=== PATIENT | male | born 1935 | race Caucasian/White ===

== ENCOUNTER 2017-09-20 12:58 | Outpatient (CLI) | payer MEDICARE, OTHER ==
--- NOTE | 2017-09-20 14:47 | CT ---
NONCONTRAST CT ABDOMEN AND PELVIS: Date: 09/20/17 HISTORY: Right flank pain for 3 weeks. Back pain. History of cholecystectomy. COMPARISON: 12/22/16. FINDINGS: No renal or ureteral calculi are seen bilaterally, and there is no hydronephrosis. Post cholecystectomy changes are present. Vascular calcifications are again seen in the abdominal aorta and iliac arteries. There is minimal bibasilar atelectasis versus scarring at the posterior aspect of each lung base. The liver, spleen, pancreas, bilateral adrenal glands, kidneys, and incompletely distended urinary bl adder demonstrate a grossly normal nonenhanced CT appearance. Urinary bladder wall thickening is like ly attributable to incomplete distention. The appendix is visualized and normal in caliber. Multiple phleboliths are seen in the pelvis. There are degenerative changes noted in the spine. There is colonic diverticulosis. Small to moderate amount of retained fecal material seen in the colo n. There has been no interval change compared to the prior exam. IMPRESSION: 1. Stable nonenhanced CT scan of the abdomen and pelvis. No acute findings are visualized. 2. No renal or ureteral calculi are present. 3. Colonic diverticulosis with a small to moderate amount of retained fecal material in the colon. POS: [facility]
== END 2017-09-20 12:59 | disposition home or self-care (01) ==
LOC: CT 12:58
PROVIDERS: ATTEND Internal Medicine Nephrology
DX: N18.3 Chronic kidney disease, stage 3 (moderate) (principal); M54.9 Dorsalgia, unspecified; K57.30 Diverticulosis of large intestine without perforation or abscess without bleeding; K59.00 Constipation, unspecified
CPT/HCPCS: 36415; 74176; 81003

== ENCOUNTER 2017-10-09 05:59 | Day surgery (SDC) | payer MEDICARE, OTHER ==
[2017-10-08 15:04] VITALS: BMI 30.5
--- NOTE | 2017-10-08 20:18 | HP ---
DATE OF ADMISSION: 10/09/2017 HISTORY OF PRESENT ILLNESS: Mr. Surendra Elise is a 81-year-old male with chronic GI symptoms , abdominal bloating, abdominal swelling, and constipation. The patient has history of colon polyp a nd polypectomy done 5 years ago. The patient comes for a colonoscopy because of history of colon chacorta yp and chronic GI symptoms. ALLERGIES: None. MEDICAL ILLNESSES: 1. Hypertension. 2. Hyperlipidemia. 3. Diabetes mellitus. 4. Chronic kidney disease. 5. Gout. 6. Chronic acid reflux. 7. Sleep apnea. SOCIAL HISTORY: The patient does not smoke, but drinks alcohol socially. PHYSICAL EXAMINATION: VITAL SIGNS: Pulse is 70, blood pressure 140/80. HEENT: Conjunctivae clear. CARDIOVASCULAR: First and second heart sounds normal. LUNGS: Clear to auscultation. ABDOMEN: Soft to palpate. No organomegaly. No tenderness. No masses. EXTREMITIES: Reveal no edema. ADMITTING DIAGNOSES: Colon polyp, chronic dyspepsia. PLAN: Colonoscopy.
[2017-10-09] MEDS ORDERED: Dextrose 50% Abboject 50 ML SYRINGE ONE (06:48)
--- NOTE | 2017-10-09 11:18 | OP ---
OPERATIVE PROCEDURE: Colonoscopy. PREOPERATIVE DIAGNOSIS: This is a 81-year-old male with history of colon polyp 5 years ago . The patient undergoing followup colonoscopy. POSTOPERATIVE DIAGNOSES: 1. Sigmoid diverticular disease with active diverticula over the proximal colon. 2. Hemorrhoids. PROCEDURE NOTE: The patient was placed on his left lateral position and was given sedation by Anesth esia Department. A rectal exam was done before the scope was advanced into the rectum. No lesion fe lt on rectal exam. A Pentax video colonoscope was introduced into the rectum and advanced all the wa y into the cecum. The prep was very good. The mucosa appears normal throughout the colon. The appe ndiceal orifice, ileocecal valve, and cecum, no pathology seen. Withdrawal of scope in the cecum, as cending colon, hepatic flexure, no pathology seen. The transverse colon, splenic flexure, no patholo gy seen. The descending colon showed occasional diverticula. The sigmoid colon showed some scattere d diverticular disease. Rectum showed hemorrhoids. DISCHARGE PLANNING: This is a 81-year-old male with history of colon polyp with polypectom y 5 years ago. The patient had abdominal pain and also some vague lower back pain. The patient had a colonoscopy. The colonoscopy basically showed left-sided diverticulitis. DISCHARGE RECOMMENDATIONS: 1. High-fiber diet. 2. Metamucil once a day. 3. Obtain a CAT scan of the abdomen with contrast in the near future.
[2017-10-09] MEDS ORDERED: PROPOFOL 200 MG/20 ML VIAL ONE (16:22)
[2017-10-09] MEDS ORDERED: Lidocaine 1% PF 5 ML VIAL ONE (16:22)
== END 2017-10-09 08:34 | disposition home or self-care (01) ==
LOC: SDC 05:59
PROVIDERS: ATTEND Internal Medicine Gastroenterology
PROC: 0DJD8ZZ Inspection of Lower Intestinal Tract, Via Natural or Artificial Opening Endoscopic (ICD-10-PCS; principal; 2017-10-09)
DX: K57.30 Diverticulosis of large intestine without perforation or abscess without bleeding (principal); K64.9 Unspecified hemorrhoids; I12.9 Hypertensive chronic kidney disease with stage 1 through stage 4 chronic kidney disease, or unspecified chronic kidney disease; E11.22 Type 2 diabetes mellitus with diabetic chronic kidney disease; N18.9 Chronic kidney disease, unspecified; E78.5 Hyperlipidemia, unspecified; M10.9 Gout, unspecified; K21.9 Gastro-esophageal reflux disease without esophagitis; G47.30 Sleep apnea, unspecified; Z88.5 Allergy status to narcotic agent; Z98.890 Other specified postprocedural states; Z86.010 Personal history of colon polyps
CPT/HCPCS: 36416; J2001; J2704

== ENCOUNTER 2017-10-16 10:42 | Outpatient (CLI) | payer MEDICARE, OTHER ==
[2017-10-16] MEDS ORDERED: ISOVUE-370 76%-LOCM 1 ML ONE (13:08)
== END 2017-10-16 10:43 | disposition home or self-care (01) ==
LOC: BICCT 10:42
PROVIDERS: ATTEND Internal Medicine Gastroenterology
DX: R10.9 Unspecified abdominal pain (principal); K57.30 Diverticulosis of large intestine without perforation or abscess without bleeding; Z90.49 Acquired absence of other specified parts of digestive tract
CPT/HCPCS: 74160

== ENCOUNTER 2017-10-18 00:22 | Emergency (ER) | payer MEDICARE, OTHER ==
[2017-10-18 00:43] LABS: #Basophils 0.1 thou/uL (0.0-0.2); #Eosinphils 0.1 thou/uL (0.0-0.7); #Lymphocytes 1.9 thou/uL (1.20-3.40); #Monocytes 0.7 thou/uL (0.11-0.59); #Neutrophils 6.9 thou/uL (1.40-6.50); %Basophils 0.7 % (0.0-1.0); %Eosinophils 1.1 % (0.0-10.0); %Monocytes 6.7 % (0.0-10.0); %Neutrophils 71.4 % (42.0-75.0); Hemoglobin 15.8 g/dL (14.0-18.0); Mean Corpuscular HGB CONC 33.3 g/dL (32.0-36.0); Mean Corpuscular Hemoglobin 29.2 pg (27.0-31.0); Mean Corpuscular Volume 87.8 fl (80.0-94.0); Platelet Count 201 thou/uL (130-400); RBC Distribution Width 15.3 % (11.5-14.5); Red Blood Cell (RBC) Count 5.41 mill/uL (4.70-6.10); White Blood Cell (WBC) Count 9.7 thou/uL (4.8-10.8)
[2017-10-18] MEDS ORDERED: Fentanyl 100 MCG/2 ML VIAL ONE (01:03)
[2017-10-18 01:41] LABS: ALT (SGPT) 22 U/L (8-55); AST (SGOT) 18 U/L (5-34); Albumin 4.3 g/dL (3.4-4.8); Alkaline Phosphatase 198 U/L (40-150); Anion Gap 11 mmol/L (10-20); BUN (Urea Nitrogen) 26 mg/dL (8.4-25.7); Bilirubin, Total 0.9 mg/dL (0.2-1.2); Calc. Creatinine Clearance 0 mL/min (70-130); Calcium 9.3 mg/dL (7.8-10.44); Carbon Dioxide 25 mmol/L (23-31); Chloride 103 mmol/L (98-107); Estimated GFR-MDRD 33; Globulin 3.2 g/dL (2.4-3.5); Glucose 260 mg/dL (83-110); Potassium 4.5 mmol/L (3.5-5.1); Protein, Total 7.5 g/dL (5.8-8.1); Sodium 134 mmol/L (136-145)
--- NOTE | 2017-10-18 08:14 | RAD ---
TWO VIEW LEFT FOREARM: Indication: Injury, trauma, pain. FINDINGS: Overlying artifacts limit detail. No discrete fracture or dislocation. There is punctate density of t he dorsal mid forearm projecting medially. Mild degenerative change is incidentally noted. IMPRESSION: 1. No acute fracture. 2. Punctate radiopaque foreign body at the dorsal, medial mid forearm. Correlate clinically. POS: [facility]
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
--- NOTE | 2017-10-18 08:18 | RAD ---
LEFT ANKLE THREE VIEWS: Indication: Post-traumatic pain. FINDINGS: There is soft tissue prominence. Mortise is intact. No discrete fracture. There is mild osteoarthriti s. IMPRESSION: 1. No acute osseous abnormality of left ankle. 2. Soft tissue prominence. Correlate clinically. POS: [facility]
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
[2017-10-18] MEDS ORDERED: ISOVUE-370 76%-LOCM 1 ML ONE (13:20)
== END 2017-10-18 02:48 | disposition home or self-care (01) ==
LOC: ERS 00:22
DX: S16.1XXA Strain of muscle, fascia and tendon at neck level, initial encounter (principal); S51.802A Unspecified open wound of left forearm, initial encounter; I10 Essential (primary) hypertension; K21.9 Gastro-esophageal reflux disease without esophagitis; E78.00 Pure hypercholesterolemia, unspecified; M10.9 Gout, unspecified; Z79.899 Other long term (current) drug therapy; Z79.84 Long term (current) use of oral hypoglycemic drugs; V50.9XXA Unspecified occupant of pick-up truck or van injured in collision with pedestrian or animal in traffic accident, initial encounter
CPT/HCPCS: 70450; 71260; 72125; 74177; 80053; 85025; 86850; 86900; 86901; 93005; 94760; 96374; 96376; J3010

== ENCOUNTER 2019-01-27 11:00 | Observation (INO) | payer MEDICARE, OTHER ==
[2019-01-27 11:18] LABS: #Basophils 0.1 thou/uL (0.0-0.2); #Eosinphils 0.2 thou/uL (0.0-0.7); #Lymphocytes 2.9 thou/uL (1.20-3.40); #Monocytes 0.5 thou/uL (0.11-0.59); %Basophils 0.5 % (0.0-1.0); %Eosinophils 1.9 % (0.0-10.0); %Lymphocytes 27.5 % (21.0-51.0); %Monocytes 4.2 % (0.0-10.0); %Neutrophils 65.9 % (42.0-75.0); Hemoglobin 15.3 g/dL (14.0-18.0); Mean Corpuscular HGB CONC 32.7 g/dL (32.0-36.0); Mean Corpuscular Hemoglobin 28.1 pg (27.0-31.0); Mean Platelet Volume 7.5 fL (7.4-10.4); Platelet Count 221 thou/uL (130-400); RBC Distribution Width 14.1 % (11.5-14.5); Red Blood Cell (RBC) Count 5.45 mill/uL (4.70-6.10); White Blood Cell (WBC) Count 10.6 thou/uL (4.8-10.8)
[2019-01-27 11:38] LABS: ALT (SGPT) 20 U/L (8-55); AST (SGOT) 15 U/L (5-34); Alkaline Phosphatase 128 U/L (40-150); Anion Gap 11 mmol/L (10-20); BUN (Urea Nitrogen) 57 mg/dL (8.4-25.7); Bilirubin, Total 0.7 mg/dL (0.2-1.2); CK (CPK) 50 U/L (30-200); Calc. Creatinine Clearance 0 mL/min (70-130); Calcium 8.5 mg/dL (7.8-10.44); Carbon Dioxide 23 mmol/L (23-31); Chloride 103 mmol/L (98-107); Estimated GFR-MDRD 18; Globulin 2.3 g/dL (2.4-3.5); Glucose 187 mg/dL (83-110); Potassium 4.3 mmol/L (3.5-5.1); Protein, Total 6.3 g/dL (5.8-8.1); Sodium 133 mmol/L (136-145)
[2019-01-27] MEDS ORDERED: Ondansetron ODT 4 MG TAB ONE (12:24)
--- NOTE | 2019-01-27 12:26 | RAD ---
EXAM: Portable chest PROVIDED CLINICAL HISTORY: Weakness COMPARISON: 04/12/2016 FINDINGS: Cardiac and mediastinal silhouette is within normal limits. No focal consolidation, pleural fluid or pneumothorax evident. Vascular calcification involves the aortic arch. IMPRESSION: No evidence for an acute cardiopulmonary process.
[2019-01-27 14:09] LABS: Bilirubin Negative (Negative); Blood, Urine Negative (Negative); Clarity Clear (Clear); Glucose, Urine (Dipstick) 30 mg/dL (Negative); Leukocyte Negative Leu/uL (Negative); Nitrite Negative (Negative); Protein, Urine (Dipstick) Negative (Neg-Trace); Urobilinogen Normal mg/dL (Less than 2)
--- NOTE | 2019-01-27 14:57 | ULT ---
VENOUS DOPPLER ULTRASOUND OF THE LEFT LOWER EXTREMITY: HISTORY: Left lower extremity edema and pain. TECHNIQUE: Ascencio-scale ultrasound with color-flow and spectral Doppler imaging of the deep venous system of the l eft lower extremity is performed. FINDINGS: There is good flow, compression, and augmentation noted in the left common femoral, femoral, deep fem oral, popliteal, posterior tibial, and greater saphenous veins. IMPRESSION: No evidence of deep venous thrombosis in the left lower extremity. POS: [facility]
[2019-01-27] MEDS ORDERED: Ondansetron PF 4 MG/2 ML Vial IVP PRN (15:22)
[2019-01-27] MEDS ORDERED: Ondansetron ODT 4 MG TAB PO PRN (15:22)
[2019-01-27] MEDS ORDERED: Acetaminophen 650 MG Suppository PR PRN (15:22)
[2019-01-27] MEDS ORDERED: Acetaminophen 325 MG TAB PO PRN (15:22)
[2019-01-27] MEDS ORDERED: HumaLOG 300 UNITS/3 ML VIAL SC PRN ×2 (15:30)
[2019-01-27] MEDS ORDERED: Dextrose 5% in Water 1,000 ML IV PRN (15:30)
[2019-01-27] MEDS ORDERED: Dextrose 50% Abboject 50 ML SYRINGE SLOW IVP PRN (15:30)
--- NOTE | 2019-01-27 16:12 | ULT ---
Exam: Bilateral renal ultrasound HISTORY: Severe acute kidney insufficiency/chronic kidney disease. Diminished GFR. COMPARISON: 11/19/2012 FINDINGS: Right kidney: Right renal cortical thinning. No hydronephrosis Right kidney measurements: 10.2 x 5.2 x 5.6 cm. Left kidney: Left renal cortical thinning. No hydronephrosis. Left kidney measurements 5.7 x 12.5 x 5.6 cm. Urinary bladder: Normal mucosa. 108 mL prevoid volume IMPRESSION: 1. No hydronephrosis. 2. Bilateral renal cortical thinning.
--- NOTE | 2019-01-27 19:11 | CON ---
DATE OF CONSULTATION: REASON FOR CONSULTATION: Elevated creatinine. HISTORY OF PRESENT ILLNESS: This is an 83-year-old gentleman, being seen in the CKD Clinic, presented to the hospital with a 1 to 2-day history of increasing weakness as well as substernal pain related to gastroesophageal reflux disease. The patient denies chest pain or orthopnea, but has dyspnea on minimal exertion. The patient denies any nausea or leg swelling. The patient's baseline creatinine was in the 1 to 2s and has increased to 3. PAST MEDICAL HISTORY: Significant for hyperlipidemia, gout, CKD, cholecystectomy, bilateral knee surgeries, shoulder replacement, cervical disk fusion. SOCIAL HISTORY: No alcohol or drug use. FAMILY HISTORY: Negative for ESRD. ALLERGIES: REVIEWED. MEDICATIONS: Home medication list reviewed. Hospital medication list reviewed. REVIEW OF SYSTEMS: A 15-point review of system was performed and negative except for positives noted above. GENERAL: HEAD: NECK: No swelling or lumps. NOSE: No epistaxis or discharge. EYES: No diplopia or pain. 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 NEUROPSYCHIATIC SYSTEMS: No suicidal ideation. No ideation. SKIN: Denies any rash or ulcer. CONSTITUTIONAL: No fever or chills. PHYSICAL EXAMINATION: General: The patient is awake and alert. VITAL SIGNS: Afebrile. Pulse 75, breathing 16, blood pressure 130/70. GENERAL APPEARANCE AND MENTAL STATUS: Fair. HEAD/NECK: Normocephalic. Atraumatic. EYES: EOMI. No deformity. EARS: Clear. No ulcers. NOSE: Intact. No lesions. MOUTH: Clear. No discharge. THROAT: Clear. No exudate. LUNGS: Clear. No crackles. CARDIAC: S1, S2. No rub. ABDOMEN: Benign. Bowel sounds positive. GENITALIA/RECTUM: Pina absent. BACK/EXTREMITIES: Edema 0+. NEUROLOGICAL: Alert and motor intact. SKIN: LYMPHATICS: LABORATORY DATA: Labs show hemoglobin 15.3. Creatinine 3.2. ASSESSMENT AND PLAN: Acute kidney injury with chronic kidney disease, stage 4, most likely due to acute tubular necrosis due to cardiorenal syndrome. No indication for dialysis. Hypertension, stable. Anemia, stable. Medication based on GFR, appropriate. We will follow the patient's renal function closely. Job ID: [id number]
--- NOTE | 2019-01-27 20:24 | HP ---
CHIEF COMPLAINT: Generalized weakness. HISTORY OF PRESENT ILLNESS: Mr. Elise is an 83-year-old gentleman with a known history of CKD, diabetes, and hypertension, who reports having generalized weakening, worsening over the last 2 weeks. He states that approximately 2 weeks ago he spoke to Dr. Alcocer about feeling generally unwell and was advised to go to the emergency department. He decided not to and since then has been away on vacation. His symptoms did not improve, but rather gradually worsened since then. He states two days ago, he developed loose stools. His last bowel movement was yesterday. States the stools were watery, though he suffers from chronic diarrhea, it was worse than usual. Denies noting any blood in the stool. Has not had any vomiting. Denies having any fevers. Reports having pain in the right inner thigh radiating down the medial aspect of his leg. Denies any injuries or strenuous activity. Has not had any pain in his hip. Denies any pain in his back. He suffers from chronic back discomfort, but does not cause any radicular pain down his leg. He has not noted any lower leg swelling or edema. In the emergency department, he underwent laboratory studies, which were notable for elevated renal function with a BUN of 57 and creatinine of 3.29. His GFR is 18. His GFR is usually in the mid 20s to 30s. Creatinine taken one month ago was 2.14. He had urinalysis done which was normal. LFTs unremarkable. Full blood count normal as well. He underwent a venous Doppler to rule out DVT and it was unremarkable. A chest x-ray was done as well which showed no acute cardiopulmonary process. The patient has been started on IV fluids. PAST MEDICAL HISTORY: 1. CKD. 2. Gout. 3. Hyperlipidemia. 4. Hypertension. 5. Diabetes mellitus. 6. GERD. 7. Chronic diverticulitis. PAST SURGICAL HISTORY: 1. Cholecystectomy. 2. Bilateral knee surgery. 3. Shoulder replacement. 4. Cervical disk fusion. SOCIAL HISTORY: The patient denies any tobacco use. Reports rare alcohol consumption. Denies any drug use. ALLERGIES: HYDROCODONE. CURRENT MEDICATIONS: 1. Allopurinol. 2. Cilostazol. 3. Colchicine. 4. Vitamin B12. 5. Glimepiride. 6. Insulin. 7. Losartan/hydrochlorothiazide. 8. Methylcellulose. 9. Omeprazole. 10. Lyrica. 11. Ropinirole. 12. Simvastatin. 13. Testosterone. PHYSICAL EXAMINATION: GENERAL: The patient appears well developed, well nourished, and is in no acute distress. VITAL SIGNS: HEENT: Normocephalic and atraumatic. Pupils are equal, round, and reactive to light. Sclerae without icterus. Oropharynx is clear. NECK: Supple. Full range of motion. LUNGS: Clear to auscultation bilaterally. CARDIAC: Regular rate and rhythm. ABDOMEN: Obese, soft, lower abdominal discomfort with palpation. The patient states this is long-standing due to diverticulitis. No rigidity or guarding. No renal angle tenderness. EXTREMITIES: No lower leg swelling or edema. He does have tenderness on the medial aspect of his thigh down to the level of his knee. Normal range of motion. Pain is not exacerbated with any movement in his legs. No increase in pain with plantar flexion or plantar extension or with straight leg raise passive or against resistance. No hip tenderness or groin tenderness. No redness or other skin changes. NEUROLOGIC: Alert and oriented x3. Sensation intact. Power 5/5 in all limbs. INVESTIGATIONS: As mentioned above in HPI. IMPRESSION AND PLAN: Mr. Elise is an 83-year-old gentleman who has been referred for management of the following. 1. Acute kidney injury/chronic kidney disease. The patient with a known history of chronic kidney disease, who is under the care of Dr. Alcocer. Advised to come in due to generalized weakness since two weeks ago. He is acutely dehydrated. We will receive IV hydration. We will obtain a renal ultrasound. Urinalysis has been done and unremarkable. Consultation has been placed with Dr. Alcocer. 2. Generalized weakness. The patient has felt unwell for the last 2 weeks with weakness gradually worsening and discomfort in the left leg. We will place consultation with PT/OT. 3. Hypertension. We will resume home medications and monitor blood pressure. 4. Diabetes mellitus. We will hold glimepiride. We will start insulin sliding scale and monitor glucose. 5. Deep venous thrombosis prophylaxis. Mechanical SCDs. We will hold anticoagulation given renal function. The patient is ambulatory. 6. Gastrointestinal prophylaxis. 7. Code status is full. His surrogate decision maker is his , Erica Elise. 8. The patient's case was discussed with Dr. Lai, who agrees with the plan of care as described above. Job ID: [id number]
[2019-01-27] MEDS ORDERED: Famotidine/PF 20 mg/2ml Vial SLOW IVP SCH (21:00)
[2019-01-27] MEDS ORDERED: Sodium Chloride 0.9% 1,000 ML IV SCH (23:30)
[2019-01-27] MEDS ORDERED: Melatonin 3 MG TAB PO SCH (23:30)
[2019-01-28 06:39] LABS: #Basophils 0.1 thou/uL (0.0-0.2); #Eosinphils 0.2 thou/uL (0.0-0.7); #Lymphocytes 3.4 thou/uL (1.20-3.40); #Monocytes 0.5 thou/uL (0.11-0.59); #Neutrophils 6.6 thou/uL (1.40-6.50); %Basophils 0.7 % (0.0-1.0); %Eosinophils 1.8 % (0.0-10.0); %Lymphocytes 31.2 % (21.0-51.0); %Monocytes 4.9 % (0.0-10.0); %Neutrophils 61.3 % (42.0-75.0); Hemoglobin 15.6 g/dL (14.0-18.0); Mean Corpuscular Hemoglobin 28.4 pg (27.0-31.0); Mean Corpuscular Volume 86.2 fL (78.0-98.0); Mean Platelet Volume 7.8 fL (7.4-10.4); Platelet Count 231 thou/uL (130-400); RBC Distribution Width 14.3 % (11.5-14.5); Red Blood Cell (RBC) Count 5.49 mill/uL (4.70-6.10); White Blood Cell (WBC) Count 10.8 thou/uL (4.8-10.8)
[2019-01-28 06:58] LABS: Anion Gap 11 mmol/L (10-20); BUN (Urea Nitrogen) 41 mg/dL (8.4-25.7); Calc. Creatinine Clearance 35 mL/min (70-130); Carbon Dioxide 21 mmol/L (23-31); Chloride 109 mmol/L (98-107); Estimated GFR-MDRD 29; Glucose 106 mg/dL (83-110); Potassium 4.3 mmol/L (3.5-5.1); Sodium 137 mmol/L (136-145)
[2019-01-28] MEDS ORDERED: Famotidine 20 MG TAB PO SCH (09:00)
[2019-01-28 12:00] VITALS: BMI 29.9
--- NOTE | 2019-01-28 16:40 | PRG ---
DATE OF SERVICE: 01/28/2019 SUBJECTIVE: An 83-year-old gentleman being seen for acute kidney injury. The patient denied nausea, vomiting, or chest pain. OBJECTIVE: CONSTITUTIONAL: The patient is awake and alert. VITAL SIGNS: Afebrile, pulse 72, breathing 16, and blood pressure 160/88. GENERAL APPEARANCE AND MENTAL STATUS: Fair. HEAD/NECK: Normocephalic. Atraumatic. EYES: EOMI. No deformity. EARS: Clear. No ulcers. NOSE: Intact. No lesions. MOUTH: Clear. No discharge. THROAT: Clear. No exudate. LUNGS: Clear. No crackles. CARDIAC: S1, S2. No rub. ABDOMEN: Benign. Bowel sounds positive. GENITALIA/RECTUM: Pina absent. BACK/EXTREMITIES: Edema 0+. NEUROLOGICAL: Alert and motor intact. SKIN: LYMPHATICS: LABORATORY DATA: Labs show creatinine is 2.2. ASSESSMENT AND PLAN: Acute kidney injury, improved. Hypertension, stable. Anemia, stable. For hypertension, I am going to stop IV fluids. Monitor the patient's renal function daily. Job ID: [id number]
--- NOTE | 2019-01-28 16:54 | PDOC.HOSPP ---
- Subjective Encounter Date: 01/28/19 Encounter Time: 11:00 Subjective: Patient reports he feels "a little" better after the fluids. C/o of profound weakness for the last 2 weeks. - Objective Vital Signs & Weight: Vital Signs (12 hours) Temp Pulse Resp BP BP Pulse Ox 01/28/19 16:44 98.4 F 71 20 179/71 H 99 01/28/19 12:00 97.3 F L 68 18 171/80 H 20 L 01/28/19 08:00 97.7 F 62 18 166/81 H 98 01/28/19 07:41 97.7 F 62 18 166/81 H 98 Weight Admit Weight 99.337 kg Weight 99.972 kg Result Diagrams: 01/28/19 05:43 01/28/19 05:43 Additional Labs: Accuchecks 01/28/19 01/28/19 01/28/19 16:41 11:50 04:06 POC Glucose 173 H 108 118 H 01/27/19 22:05 POC Glucose 240 H ROS - Review of Systems Constitutional: reports: weakness Neurological: reports: weakness - Exam Eye: PERRL ENT: moist mucosa Neck: supple, no JVD Heart: RRR Respiratory: CTAB Gastrointestinal: soft, non-tender Neurological: CN's grossly intact Musculoskeletal: normal tone Psychiatric: normal affect Hosp A/P (1) Chronic kidney disease (CKD) Code(s): N18.9 - CHRONIC KIDNEY DISEASE, UNSPECIFIED Status: Resolved (2) Diarrhea Code(s): R19.7 - DIARRHEA, UNSPECIFIED Status: Resolved (3) Acute worsening of stage 3 chronic kidney disease Code(s): N18.3 - CHRONIC KIDNEY DISEASE, STAGE 3 (MODERATE) Status: Chronic (4) Diabetes type 2, controlled Code(s): E11.9 - TYPE 2 DIABETES MELLITUS WITHOUT COMPLICATIONS Status: Chronic (5) Hypertension Code(s): I10 - ESSENTIAL (PRIMARY) HYPERTENSION Status: Chronic - Plan Dr. Alcocer is following, kidney function has improved since yesterday Will check an Echocardiogram, if EF WNL, will dc home PT/OT ordered, Will recheck labs in AM
[2019-01-28] MEDS ORDERED: Prevnar 13-Val Conj/PF 0.5 ML SYRINGE IM ONE (21:00)
[2019-01-29 06:56] VITALS: BP 174/89
[2019-01-29] MEDS ORDERED: Famotidine 20 MG TAB PO SCH (09:00)
[2019-01-29 09:06] VITALS: TEMP 98.3
[2019-01-29 09:26] LABS: Anion Gap 11 mmol/L (10-20); BUN (Urea Nitrogen) 31 mg/dL (8.4-25.7); Calc. Creatinine Clearance 40 mL/min (70-130); Calcium 8.6 mg/dL (7.8-10.44); Carbon Dioxide 23 mmol/L (23-31); Chloride 105 mmol/L (98-107); Estimated GFR-MDRD 33; Glucose 182 mg/dL (83-110); Potassium 4.3 mmol/L (3.5-5.1); Sodium 135 mmol/L (136-145)
--- NOTE | 2019-01-29 11:26 | PRG ---
DATE OF SERVICE: 01/29/2019 SUBJECTIVE: This is an 83-year-old gentleman, being seen for acute kidney injury. The patient denied nausea, vomiting, or chest pain. OBJECTIVE: CONSTITUTIONAL: The patient is awake and alert. VITAL SIGNS: Pulse 58, breathing 16, and blood pressure 177/83. GENERAL APPEARANCE AND MENTAL STATUS: Fair. HEAD/NECK: Normocephalic. Atraumatic. EYES: EOMI. No deformity. EARS: Clear. No ulcers. NOSE: Intact. No lesions. MOUTH: Clear. No discharge. THROAT: Clear. No exudate. LUNGS: Clear. No crackles. CARDIAC: S1, S2. No rub. ABDOMEN: Benign. Bowel sounds positive. GENITALIA/RECTUM: Pina absent. BACK/EXTREMITIES: Edema 0+. NEUROLOGICAL: Alert and motor intact. SKIN: LYMPHATICS: LABORATORY DATA: Reviewed. ASSESSMENT: 1. Stage 3 chronic kidney disease, stable. 2. Acute kidney injury, stable due to acute tubular necrosis. 3. Hypertension, stable. 4. Anemia, stable. 5. Medication based on GFR appropriate. 6. Congestive heart failure. The patient will follow up with Dr. Tovar. Job ID: [id number]
--- NOTE | 2019-02-01 14:59 | EKG ---
Test Reason : Blood Pressure : / mmHG Vent. Rate : 074 BPM Atrial Rate : 074 BPM P-R Int : 156 ms QRS Dur : 124 ms QT Int : 388 ms P-R-T Axes : 041 027 033 degrees QTc Int : 430 ms Normal sinus rhythm with sinus arrhythmia Non-specific intra-ventricular conduction delay Borderline ECG Confirmed by BRIELLE RIZO, FREYA ([id number]), multimedia editor JAJA VALDIVIA ([id number]) on 02/01/2019 2:58:43 PM Referred By: Confirmed By:FREYA HANNAH MD
== END 2019-01-29 11:53 | disposition home or self-care (01) ==
LOC: ERS 11:00 → ERHOLD 13:35 → T4-B 19:59 → T4-A 20:01
PROVIDERS: ADMIT Internal Medicine; ATTEND Internal Medicine
DX: I13.0 Hypertensive heart and chronic kidney disease with heart failure and stage 1 through stage 4 chronic kidney disease, or unspecified chronic kidney disease (principal); E11.22 Type 2 diabetes mellitus with diabetic chronic kidney disease; N18.4 Chronic kidney disease, stage 4 (severe); N17.0 Acute kidney failure with tubular necrosis; I50.9 Heart failure, unspecified; D63.1 Anemia in chronic kidney disease; M10.9 Gout, unspecified; E78.5 Hyperlipidemia, unspecified; K21.9 Gastro-esophageal reflux disease without esophagitis; Z98.1 Arthrodesis status; Z88.5 Allergy status to narcotic agent; Z79.4 Long term (current) use of insulin; Z79.899 Other long term (current) drug therapy
CPT/HCPCS: 71045; 76770; 80048 ×2; 80053; 81003; 82550; 82962 ×3; 83630; 83690; 83880; 84484; 85025 ×2; 87045; 87046; 87324; 87328; 87329; 87449 ×2; 87899 ×2; 90670; 93005; 93306; 93971; 96360; 96361 ×2; 97139 ×3; 99285; G0009; G0378 ×4; 36415; 36416; 90471; Q0162

== ENCOUNTER 2019-03-12 18:25 | Observation (INO) | payer MEDICARE, OTHER ==
[2019-03-12 19:01] VITALS: BMI 29.5
--- NOTE | 2019-03-12 20:14 | RAD ---
EXAM: Chest PA and lateral: HISTORY: Precardiac catheterization COMPARISON: 05/11/2014, 01/27/2019 FINDINGS: Heart: Normal cardiac silhouette Aorta: Atherosclerosis of the aortic knob Pulmonary vessels: Mildly prominent pulmonary vessels Costophrenic angles: Costophrenic angles are clear. Lungs: No consolidation or masses. Pneumothorax: No pneumothorax Osseous structures: No osseous abnormalities IMPRESSION: 1. Mild pulmonary vascular prominence. Correlate for volume overload 2. Atherosclerosis of the aortic knob
[2019-03-12] MEDS ORDERED: Ondansetron PF 4 MG/2 ML Vial SLOW IVP PRN (20:20)
[2019-03-12] MEDS ORDERED: Sodium Chloride 0.9% 1,000 ML IV SCH (20:20)
[2019-03-12] MEDS ORDERED: Acetaminophen 325 MG TAB PO PRN (20:20)
[2019-03-12] MEDS ORDERED: Mag-Al 1200 mg/1200 mg/30 ML UDCUP PO PRN (20:20)
[2019-03-12 20:48] LABS: #Basophils 0.1 thou/uL (0.0-0.2); #Eosinphils 0.2 thou/uL (0.0-0.7); #Lymphocytes 2.9 thou/uL (1.20-3.40); #Monocytes 0.6 thou/uL (0.11-0.59); #Neutrophils 7.1 thou/uL (1.40-6.50); %Basophils 0.5 % (0.0-1.0); %Eosinophils 1.7 % (0.0-10.0); %Lymphocytes 26.9 % (21.0-51.0); %Monocytes 5.4 % (0.0-10.0); %Neutrophils 65.5 % (42.0-75.0); Hemoglobin 14.7 g/dL (14.0-18.0); Mean Corpuscular HGB CONC 33.7 g/dL (32.0-36.0); Mean Platelet Volume 7.9 fL (7.4-10.4); Platelet Count 204 thou/uL (130-400); RBC Distribution Width 14.1 % (11.5-14.5); Red Blood Cell (RBC) Count 5.06 mill/uL (4.70-6.10); White Blood Cell (WBC) Count 10.9 thou/uL (4.8-10.8)
[2019-03-12 21:14] LABS: ALT (SGPT) 35 U/L (8-55); AST (SGOT) 16 U/L (5-34); Albumin 3.8 g/dL (3.4-4.8); Alkaline Phosphatase 150 U/L (40-110); Anion Gap 11 mmol/L (10-20); BUN (Urea Nitrogen) 41 mg/dL (8.4-25.7); Bilirubin, Total 0.5 mg/dL (0.2-1.2); Calc. Creatinine Clearance 29 mL/min (70-130); Calcium 8.3 mg/dL (7.8-10.44); Carbon Dioxide 25 mmol/L (23-31); Cardiac Risk 5.3 (Less than 4.5); Chloride 101 mmol/L (98-107); Cholesterol 116 mg/dl (< 200 Desired); Estimated GFR-MDRD 22; Globulin 2.6 g/dL (2.4-3.5); Glucose 300 mg/dL (83-110); HDL Cholesterol 22 mg/dL (>60 Neg Risk); LDL Cholesterol, Calculated 29 mg/dL; Potassium 3.7 mmol/L (3.5-5.1); Protein, Total 6.4 g/dL (5.8-8.1); Sodium 133 mmol/L (136-145); Triglycerides 325 mg/dL (Less than 150)
[2019-03-12] MEDS ORDERED: Colchicine 0.6 MG TAB PO PRN (21:15)
[2019-03-12] MEDS ORDERED: Insulin Glargine 25 UNITS in Pre-Filled Syringe 1 EACH SC SCH (21:15)
[2019-03-12] MEDS ORDERED: cloNIDine 0.1 MG TAB PO PRN (21:15)
[2019-03-12] MEDS ORDERED: rOPINIRole HCl 0.25 MG TAB PO SCH (22:45)
[2019-03-12] MEDS ORDERED: Allopurinol 300 MG TAB PO SCH (22:45)
[2019-03-12] MEDS: Melatonin 3 MG TAB PO SCH (23:14)
[2019-03-13 05:47] LABS: #Eosinphils 0.2 thou/uL (0.0-0.7); #Lymphocytes 3.6 thou/uL (1.20-3.40); #Monocytes 0.7 thou/uL (0.11-0.59); #Neutrophils 6.4 thou/uL (1.40-6.50); %Basophils 0.4 % (0.0-1.0); %Eosinophils 1.9 % (0.0-10.0); %Lymphocytes 32.7 % (21.0-51.0); %Monocytes 6.4 % (0.0-10.0); %Neutrophils 58.5 % (42.0-75.0); Mean Corpuscular HGB CONC 33.5 g/dL (32.0-36.0); Mean Corpuscular Volume 86.6 fL (78.0-98.0); Platelet Count 193 thou/uL (130-400); RBC Distribution Width 14.2 % (11.5-14.5); Red Blood Cell (RBC) Count 4.82 mill/uL (4.70-6.10); White Blood Cell (WBC) Count 10.9 thou/uL (4.8-10.8)
[2019-03-13 06:09] LABS: ALT (SGPT) 32 U/L (8-55); AST (SGOT) 16 U/L (5-34); Albumin 3.4 g/dL (3.4-4.8); Alkaline Phosphatase 121 U/L (40-110); Anion Gap 11 mmol/L (10-20); BUN (Urea Nitrogen) 38 mg/dL (8.4-25.7); Bilirubin, Total 0.6 mg/dL (0.2-1.2); Calc. Creatinine Clearance 35 mL/min (70-130); Calcium 8.3 mg/dL (7.8-10.44); Carbon Dioxide 28 mmol/L (23-31); Chloride 103 mmol/L (98-107); Cholesterol 104 mg/dl (< 200 Desired); Estimated GFR-MDRD 27; Globulin 2.3 g/dL (2.4-3.5); Glucose 116 mg/dL (83-110); HDL Cholesterol 21 mg/dL (>60 Neg Risk); LDL Cholesterol, Calculated 47 mg/dL; Potassium 3.6 mmol/L (3.5-5.1); Protein, Total 5.7 g/dL (5.8-8.1); Sodium 138 mmol/L (136-145); Triglycerides 179 mg/dL (Less than 150)
[2019-03-13] MEDS ORDERED: Heparin 10,000 UNITS/1 ML VIAL ONE (06:31)
[2019-03-13] MEDS ORDERED: Lidocaine 1% (PF) 30 ML VIAL ONE (06:35)
[2019-03-13] MEDS ORDERED: Midazolam HCl 2 mg/2 ml Vial ONE (07:11)
[2019-03-13] MEDS ORDERED: Fentanyl 100 MCG/2 ML VIAL ONE (07:11)
[2019-03-13] MEDS ORDERED: Protamine Sulfate 50 MG/5 ML VIAL ONE (07:32)
[2019-03-13] MEDS ORDERED: Nitroglycerin 0.4 MG TAB (25 Tab Bottle) SL PRN (07:58)
[2019-03-13] MEDS ORDERED: Sodium Chloride 0.9% 200 ML IV PRN (07:58)
[2019-03-13] MEDS ORDERED: Sodium Chloride 0.9% 1,000 ML IV SCH (08:00)
[2019-03-13] MEDS ORDERED: Mag-Al 1200 mg/1200 mg/30 ML UDCUP PO PRN (08:45)
[2019-03-13] MEDS ORDERED: Losartan 25 MG TAB PO SCH ×2 (09:00→13:45)
[2019-03-13] MEDS ORDERED: Hydrochlorothiazide 25 MG TAB PO SCH (09:00)
[2019-03-13] MEDS: Metoprolol Tartrate 50 MG TAB PO SCH ×2 (09:03→20:48)
[2019-03-13] MEDS: Aspirin 81 mg Enteric Coated Tablet PO SCH (09:03)
[2019-03-13 09:11] LABS: Hemoglobin A1c 8.5 % (4.0-6.0)
[2019-03-13] MEDS: Glimepiride 4 MG TAB PO SCH ×2 (13:19→17:21)
[2019-03-13] MEDS ORDERED: HumaLOG 300 UNITS/3 ML VIAL SC PRN (13:38)
[2019-03-13] MEDS ORDERED: Dextrose 5% in Water 1,000 ML IV PRN (13:38)
[2019-03-13] MEDS ORDERED: Dextrose 50% Abboject 50 ML SYRINGE SLOW IVP PRN (13:38)
--- NOTE | 2019-03-13 14:31 | CON ---
DATE OF CONSULTATION: REASON FOR CONSULTATION: CKD stage 4 and acute kidney injury. HISTORY OF PRESENT ILLNESS: This is a very pleasant 83-year-old gentleman with a history of CKD, who presented to the hospital after cardiac catheterization. His creatinine baseline was 1.9 to 2.2, which increased to 2.8 yesterday and is improved to 2.3 today. The patient denies a fever, chills, or chest pain. PAST MEDICAL HISTORY: Significant for CKD stage 4, hypertension, anemia, history of gout, hyperlipidemia, diabetes mellitus, GERD, history of cholecystectomy, bilateral knee surgery, shoulder replacement, and cervical disk fusion. SOCIAL HISTORY: No alcohol or drug use. FAMILY HISTORY: Negative for ESRD. ALLERGIES: REVIEWED. MEDICATIONS: Home medication list reviewed. REVIEW OF SYSTEMS: A 15-point review of system was performed ne GENERAL: HEAD: NECK: No swelling or lumps. NOSE: No epistaxis or discharge. EYES: No diplopia or pain. RESPIRATORY: CARDIOVASCULAR: GASTROINTESTINAL: /BOWLING [employer]K [employer]ERK: MUSCULOSKELETAL: No joint pain. NEUROPSYCHIATIC SYSTEMS: No suicidal ideation. No ideation. SKIN: Denies any rash or ulcer. CONSTITUTIONAL: No fever or chills. PHYSICAL EXAMINATION: CONSTITUTIONAL: The patient is awake and alert. VITAL SIGNS: Pulse 76, breathing 16, and blood pressure 151/70. GENERAL APPEARANCE AND MENTAL STATUS: Fair. HEAD/NECK: Normocephalic. Atraumatic. EYES: EOMI. No deformity. EARS: Clear. No ulcers. NOSE: Intact. No lesions. MOUTH: Clear. No discharge. THROAT: Clear. No exudate. LUNGS: Clear. No crackles. CARDIAC: S1, S2. No rub. ABDOMEN: Benign. Bowel sounds positive. GENITALIA/RECTUM: Pina absent. BACK/EXTREMITIES: Edema 0+. NEUROLOGICAL: Alert and motor intact. SKIN: LYMPHATICS: LABORATORY DATA: Labs show creatinine 2.3. ASSESSMENT AND PLAN: Acute kidney injury with chronic kidney disease stage 4, stable. Acute tubular necrosis, improved. Hypertension, stable. Anemia, stable. Medication based on GFR appropriate. No indication for dialysis. We will follow appropriately. Job ID: [id number]
[2019-03-13] MEDS: Sodium Chloride 0.9% 1,000 ML IV SCH ×2 (16:03→23:50)
[2019-03-13] MEDS ORDERED: Iopamidol 370 76% 100 ML VIAL ONE (17:43)
--- NOTE | 2019-03-13 20:32 | CON ---
DATE OF CONSULTATION: Consultation from Dr. Tovar for medical management of diabetes. HISTORY OF PRESENT ILLNESS: This patient is an 83-year-old male, who has a history of hypertension, hyperlipidemia, diabetes, and gout. He presented to Dr. Tovar's office with some chest pain, had an abnormal PET scan leading to heart catheterization today. The patient had single vessel disease, which appeared to be old and no other occlusive disease and no interventions were undertaken. The patient is doing well. Post procedure, he does have some elevated blood pressure, but did not get his usual home medications this morning. He did receive a beta-rosamaria of metoprolol 50 mg this morning. He also did receive his dose of insulin last evening, but was n.p.o. this morning. He did not get his Amaryl this morning, but he did have some borderline hypoglycemia. He has subsequently eaten and feels confident that he is back to baseline. PAST MEDICAL HISTORY: Hypertension, hyperlipidemia, hypothyroidism, chronic kidney disease stage 3, gout. PAST SURGICAL HISTORY: Back surgery x2, shoulder surgery, cholecystectomy, bilateral knee arthroscopy. FAMILY HISTORY: Stroke in his mother, cancer in his father. SOCIAL HISTORY: Former smoker. ALLERGIES: HYDROCODONE. HOME MEDICATIONS: 1. Colchicine 0.6 mg p.o. daily. 2. Melatonin 10 mg at bedtime. 3. Cilostazol 50 mg at bedtime. 4. Allopurinol 300 mg q.p.m. 5. Amaryl 4 mg b.i.d. 6. Insulin glargine 25 units subcu at bedtime. 7. Ropinirole 0.75 mg at bedtime. 8. Simvastatin 20 mg q.p.m. 9. Omeprazole 40 mg q.a.m. 10. Losartan HCTZ 50/12.5 one half tablet p.o. daily. PHYSICAL EXAMINATION: VITAL SIGNS: Temperature 97.5, pulse 61, respirations 16, O2 saturation 97% on room air, BP 174/79. GENERAL APPEARANCE: Age-appropriate male, in no distress. He is awake and alert. HEART: Regular rate and rhythm without murmurs, gallops, or rubs. LUNGS: Clear to auscultation bilaterally with good chest wall expansion and air exchange. ABDOMEN: Soft, nontender, and nondistended with positive bowel sounds. EXTREMITIES: No cyanosis, clubbing, or edema. LABORATORY DATA: Creatinine this morning was 2.33 with a GFR of 27. Glucose initially 116, subsequently was at 64, then 84. White count was 10.9, hemoglobin 14.0. IMPRESSION AND PLAN: 1. Single-vessel coronary artery disease without indication for intervention. 2. Hypertension. The patient is reporting that he is actually running high in his blood pressure as an outpatient. We will go ahead and give him a dose of 25 mg of losartan he was taking at home. Even though, he did receive the beta rosamaria this morning, his blood pressure continues to run high. I resume his usual home medications in the morning. 3. Diabetes mellitus. We will order Accu-Cheks and minimum sliding scale. We will be able to continue with his usual home medications otherwise. 4. Chronic kidney disease stage 3. The patient is receiving hydration status post heart catheterization. We will recheck his labs in the morning. Job ID: [id number] MTDD
[2019-03-13] MEDS: Melatonin 3 MG TAB PO SCH (20:49)
[2019-03-13] MEDS ORDERED: Allopurinol 300 MG TAB PO SCH (21:00)
[2019-03-13] MEDS ORDERED: Cilostazol 100 MG TAB PO SCH (21:00)
[2019-03-13] MEDS ORDERED: Simvastatin 40 MG TAB PO SCH (21:00)
[2019-03-13] MEDS ORDERED: Insulin Glargine 25 UNITS in Pre-Filled Syringe 1 EACH SC SCH (21:00)
[2019-03-13] MEDS ORDERED: rOPINIRole HCl 0.25 MG TAB PO SCH (21:00)
[2019-03-14 04:55] LABS: Anion Gap 7 mmol/L (10-20); BUN (Urea Nitrogen) 20 mg/dL (8.4-25.7); Calc. Creatinine Clearance 44 mL/min (70-130); Calcium 8.3 mg/dL (7.8-10.44); Carbon Dioxide 29 mmol/L (23-31); Chloride 107 mmol/L (98-107); Estimated GFR-MDRD 35; Glucose 96 mg/dL (83-110); Potassium 3.7 mmol/L (3.5-5.1); Sodium 139 mmol/L (136-145)
[2019-03-14 07:53] VITALS: BP 157/73; TEMP 97.7
[2019-03-14] MEDS: Glimepiride 4 MG TAB PO SCH (08:41)
[2019-03-14] MEDS: Aspirin 81 mg Enteric Coated Tablet PO SCH (08:42)
[2019-03-14] MEDS: Metoprolol Tartrate 50 MG TAB PO SCH (08:42)
[2019-03-14] MEDS ORDERED: hydrALAZINE 25 MG TAB PO SCH (09:00)
--- NOTE | 2019-03-14 13:55 | PRG ---
DATE OF SERVICE: 03/14/2019 SUBJECTIVE: An 83-year-old gentleman, being seen for acute kidney injury. The patient denied any nausea, vomiting, or chest pain. OBJECTIVE: CONSTITUTIONAL: The patient is awake and alert. VITAL SIGNS: Afebrile. Pulse 65, breathing 16, blood pressure 137/73. GENERAL APPEARANCE AND MENTAL STATUS: Fair. HEAD/NECK: Normocephalic. Atraumatic. EYES: EOMI. No deformity. EARS: Clear. No ulcers. NOSE: Intact. No lesions. MOUTH: Clear. No discharge. THROAT: Clear. No exudate. LUNGS: Clear. No crackles. CARDIAC: S1, S2. No rub. ABDOMEN: Benign. Bowel sounds positive. GENITALIA/RECTUM: Pina absent. BACK/EXTREMITIES: Edema 0+. NEUROLOGICAL: Alert and motor intact. SKIN: LYMPHATICS: LABORATORY DATA: Showed hemoglobin 4.8. ASSESSMENT AND PLAN: 1. Stage 3 chronic kidney disease, stable. 2. Hypertension, stable. 3. Acute kidney injury due to acute tubular necrosis, improved. 4. Anemia, stable. The patient will follow up to see me in 1 month. Job ID: [id number]
== END 2019-03-14 10:28 | disposition home or self-care (01) ==
LOC: CCL 18:25 → 2SW 18:41 → EDSTATUS 03-13 12:28 → 2SW 03-13 12:59 → CCL 03-13 13:01 → EDSTATUS 03-13 16:39
PROVIDERS: ADMIT Internal Medicine Cardiovascular Disease; ATTEND Internal Medicine Cardiovascular Disease
PROC: 4A023N7 Measurement of Cardiac Sampling and Pressure, Left Heart, Percutaneous Approach (ICD-10-PCS; principal; 2019-03-12)
PROC: B2101ZZ Fluoroscopy of Single Coronary Artery using Low Osmolar Contrast (ICD-10-PCS; 2019-03-12)
DX: I25.10 Atherosclerotic heart disease of native coronary artery without angina pectoris (principal); I12.9 Hypertensive chronic kidney disease with stage 1 through stage 4 chronic kidney disease, or unspecified chronic kidney disease; E11.22 Type 2 diabetes mellitus with diabetic chronic kidney disease; N18.4 Chronic kidney disease, stage 4 (severe); N17.0 Acute kidney failure with tubular necrosis; E03.9 Hypothyroidism, unspecified; I34.0 Nonrheumatic mitral (valve) insufficiency; E78.2 Mixed hyperlipidemia; Z79.84 Long term (current) use of oral hypoglycemic drugs; Z79.899 Other long term (current) drug therapy; Z87.891 Personal history of nicotine dependence; Z88.5 Allergy status to narcotic agent
CPT/HCPCS: 71046; 80048; 80053 ×2; 80061 ×2; 82962 ×2; 83036; 85025 ×2; 85347; 93454; C1769; 36415; 36416; 96360; 96361; 99152; G0378; J1644; J1815; J2001; J2250; J2720; J3010; Q9967

== ENCOUNTER 2020-08-05 09:50 | Observation (INO) | payer MEDICARE, OTHER ==
[2020-07-29 14:46] VITALS: BMI 31.1
[2020-08-05] MEDS ORDERED: Lidocaine 2% Jelly 5 ML TUBE ONE (10:03)
[2020-08-05] MEDS ORDERED: Fentanyl 100 MCG/2 ML VIAL ONE ×2 (10:03→14:21)
--- NOTE | 2020-08-05 13:52 | OP ---
DATE OF PROCEDURE: 08/05/2020 SUPERVISOR PLASMA: Mary Lopes PA-C PROCEDURES PERFORMED: L4-L5 and L5-S1 laminectomy. DESCRIPTION OF PROCEDURE: The patient was brought to the operating room and intubated. He was rolled in a prone position on gel-filled chest rolls. An incision was made exposing L4 through S1 and the level was confirmed by x-ray. There was scar tissue in the L5-S1 region particularly to the right from the prior surgery. We performed residual L5 laminectomy and inferior L4 laminectomy and extended the laminectomy to the very superior aspect of S1 as compression did seem to emanate down to there. A complete decompression of lateral recesses was achieved. The wound was then extensively irrigated and MAC hemostasis was secured. Vancomycin powder was applied and the wound was closed in anatomic layers over drain. Job ID: [id number]
[2020-08-05] MEDS ORDERED: Promethazine HCl 25 MG/ML VIAL IM PRN ×2 (14:08→17:30)
[2020-08-05] MEDS ORDERED: Promethazine HCl 25 MG/ML VIAL SLOW IVP PRN (14:08)
[2020-08-05] MEDS ORDERED: Ondansetron HCl/PF 4 MG/2 ML Vial IVP PRN (14:08)
[2020-08-05] MEDS ORDERED: Ondansetron PF 4 MG/2 ML Vial ONE ×2 (14:21→16:03)
[2020-08-05] MEDS ORDERED: HYDROmorphone 2 MG/ML VIAL ONE (14:32)
[2020-08-05] MEDS ORDERED: Promethazine HCl 25 MG/ML VIAL ONE (14:41)
[2020-08-05] MEDS ORDERED: Bacitracin 1 PK ONE (14:41)
[2020-08-05] MEDS ORDERED: Lidocaine 1% PF 5 ML VIAL ONE (16:03)
[2020-08-05] MEDS ORDERED: PROPOFOL 200 MG/20 ML VIAL ONE (16:03)
[2020-08-05] MEDS ORDERED: Glycopyrrolate 0.2 MG/ML 5 ML SYRINGE ONE (16:03)
[2020-08-05] MEDS ORDERED: Rocuronium Bromide 10 MG/ML (10ML VIAL) ONE (16:03)
[2020-08-05] MEDS ORDERED: Ondansetron PF 4 MG/2 ML Vial IM PRN (17:24)
[2020-08-05] MEDS ORDERED: Milk Of Magnesia 30 ML UDCUP PO PRN (17:30)
[2020-08-05] MEDS ORDERED: diphenhydrAMINE 25 MG CAP PO PRN (17:30)
[2020-08-05] MEDS ORDERED: traMADol HCl 50 MG TAB PO PRN ×2 (17:30)
[2020-08-05] MEDS ORDERED: Promethazine 25 MG TAB PO PRN (17:30)
[2020-08-05] MEDS ORDERED: Mag-Al 1200 mg/1200 mg/30 ML UDCUP PO PRN (17:30)
[2020-08-05] MEDS ORDERED: tiZANidine HCl 4 MG TAB PO PRN (17:30)
[2020-08-05] MEDS ORDERED: Acetaminophen/Codeine 30-300mg Tablet PO PRN ×2 (17:30)
[2020-08-05] MEDS ORDERED: Morphine 4 MG/ML VIAL SLOW IVP PRN (17:30)
[2020-08-05] MEDS ORDERED: diphenhydrAMINE 50 MG/ML VIAL IVP PRN (17:30)
[2020-08-05] MEDS ORDERED: Morphine 2 MG/ML VIAL SLOW IVP PRN (17:30)
[2020-08-05] MEDS: Sodium Chloride 0.9% 1,000 ML IV SCH (22:03)
[2020-08-05] MEDS ORDERED: traMADol HCl 50 MG TAB ONE (22:12)
[2020-08-05] MEDS: CEFAZOLIN 2 GM in Premix Bag 1 BAG IVPB SCH (22:17)
[2020-08-06] MEDS ORDERED: tiZANidine HCl 4 MG TAB ONE (00:48)
[2020-08-06] MEDS: CEFAZOLIN 2 GM in Premix Bag 1 BAG IVPB SCH ×2 (06:05→13:33)
[2020-08-06] MEDS ORDERED: FLU VACC QS2020-21(65YR UP)/PF 240 MCG/0.7 ML SYRINGE IM ONE (09:00)
[2020-08-06] MEDS ORDERED: Dextrose 5% in Water 1,000 ML IV PRN (09:09)
[2020-08-06] MEDS ORDERED: HumaLOG 300 UNITS/3 ML VIAL SC PRN (09:09)
[2020-08-06] MEDS ORDERED: Dextrose 50% Abboject 50 ML SYRINGE SLOW IVP PRN (09:09)
--- NOTE | 2020-08-06 09:46 | PRG ---
DATE OF SERVICE: 08/06/2020 SUBJECTIVE: Postoperative day #1, status post L4-L5 and L5-S1 laminectomies. Following the surgery, the patient was transitioned to the PACU. He was remained in the PACU postoperatively due to lack of inpatient beds. Overnight, his pain has been well controlled with p.o. medication, he is tolerating a regular diet, and he is voiding appropriately. His RENALDO put out 90 mL overnight. Yesterday evening, he did report some radicular pain in the left leg, but this is resolved. OBJECTIVE: On exam this morning, he is sitting up comfortably. He has free active range of motion of all extremities. No focal motor weakness. No reflex asymmetry. Incision is clean, dry, and intact. There is dark red blood in the RENALDO. PLAN: We will leave RENALDO another day. We will have the patient continue to mobilize with the assistance of Physical Therapy. Once his RENALDO output trends down and he is mobilizing well, he can likely be dismissed over the weekend. His prescriptions for Tylenol No. 3 and tizanidine has been sent to [facility] in [place]. Job ID: [id number]
--- NOTE | 2020-08-06 11:19 | PDOC.CONS ---
- Consultation Encounter Date: 08/06/20 Encounter Time: 11:10 CONSULTATION NOTE CONSULT REQUEST BY: Dr. Figueroa HISTORY OF PRESENT ILLNESS: Mr. Elise is an 84-year-old male with past medical history of hypertension, hyperlipidemia, type 2 diabetes mellitus, chronic kidney disease, coronary artery disease, obstructive sleep apnea who underwent a L4-L5, L5-S1 laminectomy with Dr. Leggett on 08/05/2020. Chart and medications reviewed. He tolerated the procedure well with no complications noted operative note. Patient reports he feels well and has no current complaints. He denies chest pain, shortness of breath or abdominal pain. No numbness weakness or paresthesias. Hospital medicine team consulted for medical management of patient's chronic conditions. REVIEW OF SYSTEMS: Constitutional: denies: fever, chills, sweats, weakness, malaise, other Eyes: denies: pain, vision change, conjunctivae inflammation, eyelid inflammation, redness, other ENT: denies: ear pain, ear discharge, nose pain, nose discharge, nose congestion, mouth pain, mouth swelling, throat pain, throat swelling, other Respiratory: denies: cough, dry, shortness of breath, hemoptysis, SOB with excertion, pleuritic pain, sputum, wheezing, other Cardiovascular: denies: chest pain, palpitations, orthopnea, paroxysmal noc. dyspnea, edema, light headedness, other Gastrointestinal: denies: nausea, vomiting, abdominal pain, diarrhea, constipation, melena, hematochezia, other Genitourinary: denies: dysuria, frequency, incontinence, hematuria, retention, other Musculoskeletal: denies: neck pain, shoulder pain, arm pain, back pain, hand pain, leg pain, foot pain, other Skin: denies: rash, lesions, jay, bruising, other Neurological: denies: weakness, numbness, incoordination, change in speech, confusion, seizures, other PAST MEDICAL HISTORY: Type 2 diabetes mellitus Hypertension Hyperlipidemia Coronary artery disease Obstructive sleep apnea Chronic kidney disease PAST SURGICAL HISTORY: Laminectomy Shoulder repair Bilateral knee scopes Cholecystectomy ECF SOCIAL HISTORY: Denies tobacco, alcohol, or drug use. FAMILY HISTORY: No pertinent family history Allergies to hydrocodone PHYSICAL EXAM: General Appearance: NAD, awake alert Eye: PERRL, anicteric sclera ENT: normocephalic atraumatic, no oropharyngeal lesions, moist mucosa Neck: supple, symmetric, no JVD, no thyromegaly, no lymphadenopathy, no carotid bruit Heart: RRR, no murmur, no gallops, no rubs, normal peripheral pulses Respiratory: CTAB, no wheezes, no rales, no ronchi, normal chest expansion, no tachypnea, normal percussion Gastrointestinal: soft, non-distended, normal bowel sounds, no palpable masses, no hepatomegaly, no splenomegaly, no bruit, non-tender to palpation Extremities: no cyanosis, no clubbing, no edema Skin: normal turgor, no lesions, no rashes Neurological: cranial nerve grossly intact, normal sensation to touch, no weakness, no focal deficits, no new deficit, Musculoskeletal: normal tone, normal strength, no muscle wasting Psychiatric: normal affect, normal behavior, A&O x 3 ASSESSMENT AND PLAN: #S/p laminectomy -POD #1. -No SOB, encourage IS -N ERo LE swelling, encourage ICD use -Post-op course per surgical team #HTN Continue home metoprolol, hydralazine #HLD Continue home atorvastatin #T2DM Continue home lantus at 1/2 dose ISS, ACHS glucose checks, CC diet #GERD Pantoprazole daily #Insomnia Continue home melatonin prn DVT prophylaxis- per surgical team FULL CODE Case discussed with attending physician, Dr. Felipe.
[2020-08-06] MEDS: Sodium Chloride 0.9% 1,000 ML IV SCH (15:34)
[2020-08-06] MEDS ORDERED: Ondansetron PF 4 MG/2 ML Vial IM PRN (16:10)
[2020-08-06] MEDS ORDERED: traMADol HCl 50 MG TAB PO PRN ×2 (16:15)
[2020-08-06] MEDS ORDERED: diphenhydrAMINE 50 MG/ML VIAL IVP PRN (16:15)
[2020-08-06] MEDS ORDERED: Morphine 2 MG/ML VIAL SLOW IVP PRN (16:15)
[2020-08-06] MEDS ORDERED: Promethazine HCl 25 MG/ML VIAL IM PRN (16:15)
[2020-08-06] MEDS ORDERED: Milk Of Magnesia 30 ML UDCUP PO PRN (16:15)
[2020-08-06] MEDS ORDERED: Morphine 4 MG/ML VIAL SLOW IVP PRN (16:15)
[2020-08-06] MEDS ORDERED: tiZANidine HCl 4 MG TAB PO PRN (16:15)
[2020-08-06] MEDS ORDERED: diphenhydrAMINE 25 MG CAP PO PRN (16:15)
[2020-08-06] MEDS ORDERED: Promethazine 25 MG TAB PO PRN (16:15)
[2020-08-06] MEDS ORDERED: Promethazine HCl 12.5 MG SUPP PR PRN (16:15)
[2020-08-06] MEDS ORDERED: Mag-Al 1200 mg/1200 mg/30 ML UDCUP PO PRN (16:15)
[2020-08-06] MEDS: HumaLOG 300 UNITS/3 ML VIAL SC PRN (16:55)
[2020-08-06] MEDS: hydrALAZINE 25 MG TAB PO SCH (20:47)
[2020-08-06] MEDS ORDERED: Insulin Glargine 15 UNITS in Pre-Filled Syringe 1 EACH SC SCH (21:00)
[2020-08-07] MEDS: HumaLOG 300 UNITS/3 ML VIAL SC PRN (05:27)
[2020-08-07] MEDS: CEFAZOLIN 2 GM in Premix Bag 1 BAG IVPB SCH ×2 (08:02)
[2020-08-07] MEDS: hydrALAZINE 25 MG TAB PO SCH (08:03)
[2020-08-07 08:04] VITALS: BP 183/76; TEMP 98.6
--- NOTE | 2020-08-07 08:56 | PRG ---
DATE OF SERVICE: 08/07/2020 Mr. Elise is 2 days out from a lumbar laminectomy. His drain output has dipped below our threshold for removal. He has walked around yesterday and he feels confident that he will be safe at home. Mr. Elise can have his drain removed and be discharged. Followup will be arranged with Dr. Figueroa. Job ID: [id number]
[2020-08-07] MEDS ORDERED: Atorvastatin Calcium 10 MG TAB PO SCH (09:00)
[2020-08-07] MEDS ORDERED: Non-Formulary Item 1 EACH (Metoprolol Succinate [Metoprolol Succinate] 200 MG Tab.Er.24h) PO SCH (09:00)
[2020-08-07] MEDS ORDERED: Non-Formulary Item 1 EACH (Omeprazole [Omeprazole] 40 MG Capsule.Dr) PO SCH (09:00)
[2020-08-07] MEDS ORDERED: FLU VACC QS2020-21(65YR UP)/PF 240 MCG/0.7 ML SYRINGE IM ONE (09:00)
== END 2020-08-07 10:15 | disposition home or self-care (01) ==
LOC: SDC 09:50 → PACU-TCU 14:09 → SURG A 08-06 16:00
PROVIDERS: ADMIT Neurological Surgery; ATTEND Family Medicine
PROC: 01NB0ZZ Release Lumbar Nerve, Open Approach (ICD-10-PCS; principal; 2020-08-05)
DX: M48.062 Spinal stenosis, lumbar region with neurogenic claudication (principal); I12.9 Hypertensive chronic kidney disease with stage 1 through stage 4 chronic kidney disease, or unspecified chronic kidney disease; E11.22 Type 2 diabetes mellitus with diabetic chronic kidney disease; N18.9 Chronic kidney disease, unspecified; E78.5 Hyperlipidemia, unspecified; I25.10 Atherosclerotic heart disease of native coronary artery without angina pectoris; G47.33 Obstructive sleep apnea (adult) (pediatric); K21.9 Gastro-esophageal reflux disease without esophagitis; G47.00 Insomnia, unspecified; Z79.4 Long term (current) use of insulin; Z79.899 Other long term (current) drug therapy; Z88.5 Allergy status to narcotic agent
CPT/HCPCS: 36416; 76000; 96365; 96366; 96376; G0378; J0690; J1170; J1815; J2405; J2550; J2704; J3010; J3370

== ENCOUNTER 2022-01-30 11:43 | Emergency (ER) | payer OTHER ==
[2022-01-30 12:28] LABS: #Basophils 0.1 thou/uL (0.0-0.2); #Eosinphils 0.2 thou/uL (0.0-0.7); #Lymphocytes 5.6 thou/uL (1.20-3.40); #Monocytes 0.6 thou/uL (0.11-0.59); #Neutrophils 7.6 thou/uL (1.40-6.50); %Eosinophils 1.2 % (0.0-10.0); %Lymphocytes 39.5 % (21.0-51.0); %Monocytes 4.5 % (0.0-10.0); %Neutrophils 53.9 % (42.0-75.0); Hemoglobin 12.4 g/dL (14.0-18.0); Mean Corpuscular HGB CONC 32.8 g/dL (32.0-36.0); Mean Corpuscular Hemoglobin 30.5 pg (27.0-31.0); Mean Corpuscular Volume 93.1 fL (78.0-98.0); Mean Platelet Volume 7.2 fL (7.4-10.4); Platelet Count 232 thou/uL (130-400); RBC Distribution Width 13.4 % (11.5-14.5); Red Blood Cell (RBC) Count 4.06 mill/uL (4.70-6.10)
[2022-01-30 12:56] LABS: ALT (SGPT) 36 U/L (8-55); AST (SGOT) 25 U/L (5-34); Albumin 3.7 g/dL (3.4-4.8); Alkaline Phosphatase 177 U/L (40-110); Anion Gap 13 mmol/L (10-20); BUN (Urea Nitrogen) 24 mg/dL (8.4-25.7); Bilirubin, Total 0.8 mg/dL (0.2-1.2); Calc. Creatinine Clearance 0 mL/min (70-130); Calcium 8.4 mg/dL (7.8-10.44); Carbon Dioxide 18 mmol/L (23-31); Chloride 108 mmol/L (98-107); Estimated GFR 48; Globulin 2.4 g/dL (2.4-3.5); Glucose 122 mg/dL (83-110); Potassium 4.2 mmol/L (3.5-5.1); Protein, Total 6.1 g/dL (5.8-8.1); Sodium 135 mmol/L (136-145)
[2022-01-30] MEDS ORDERED: Iopamidol-370 76% 500 ML 1 ML ONE (15:54)
== END 2022-01-30 14:23 | disposition home or self-care (01) ==
LOC: ERS 11:43
DX: K52.9 Noninfective gastroenteritis and colitis, unspecified (principal); I10 Essential (primary) hypertension; K21.9 Gastro-esophageal reflux disease without esophagitis; M10.9 Gout, unspecified; E78.00 Pure hypercholesterolemia, unspecified
CPT/HCPCS: 36415; 74177; 80053; 83605; 84484; 85025; 93005; Q9967